=== PATIENT | male | born 1940 | race African-American/Black ===

== ENCOUNTER 2024-05-29 08:14 | Emergency (ER) | payer BC, MEDICARE ==
[2024-05-29 08:32] LABS: #Basophils 0.04 10x3/uL (0.0-0.2); %Basophils 0.4 % (0.0-1.0); %Eosinophils 1.1 % (0.0-10.0); %Lymphocytes 23.8 % (21.0-51.0); %Monocytes 10.8 % (0.0-10.0); %Neutrophils 62.9 % (42.0-75.0); Hematocrit 42.2 % (42.0-52.0); Mean Corpuscular HGB CONC 33.2 g/dL (32.0-36.0); Mean Corpuscular Hemoglobin 27.8 pg (27.0-31.0); Mean Corpuscular Volume 83.7 fL (78.0-98.0); Mean Platelet Volume 9.8 fL (7.4-10.4); Platelet Count 197 10x3/uL (130-400); RBC Distribution Width 13.1 % (11.5-14.5); Red Blood Cell (RBC) Count 5.04 mill/uL (4.70-6.10)
[2024-05-29 08:55] LABS: ALT (SGPT) 15 U/L (8-55); AST (SGOT) 25 U/L (5-34); Albumin 3.8 g/dL (3.4-4.8); Alkaline Phosphatase 73 U/L (40-110); Anion Gap 14 mmol/L (10-20); BUN (Urea Nitrogen) 10 mg/dL (8.4-25.7); Bilirubin, Total 0.8 mg/dL (0.2-1.2); Calc. Creatinine Clearance 0 mL/min (70-130); Calcium 8.9 mg/dL (7.8-10.44); Carbon Dioxide 19 mmol/L (23-31); Chloride 105 mmol/L (98-107); Estimated GFR 61; Globulin 3.2 g/dL (2.4-3.5); Glucose 121 mg/dL (83-110); Lipase 31 U/L (8-78); Potassium 3.8 mmol/L (3.5-5.1); Sodium 134 mmol/L (136-145)
[2024-05-29 08:58] LABS: Troponin I Less than 0.010 ng/mL (< 0.028)
[2024-05-29] MEDS ORDERED: Ondansetron PF 4 MG/2 ML Vial ONE (08:58)
[2024-05-29] MEDS ORDERED: Morphine 4 MG/ML VIAL ONE (08:58)
[2024-05-29] MEDS ORDERED: Iopamidol-370 76% 500 ML MDV (1 ML CHARGE) ONE (14:52)
== END 2024-05-29 12:57 | disposition home or self-care (01) ==
LOC: ERS 08:14
DX: S32.018A Other fracture of first lumbar vertebra, initial encounter for closed fracture (principal); R54 Age-related physical debility; I10 Essential (primary) hypertension; Z55.6 Problems related to health literacy; Z75.3 Unavailability and inaccessibility of health-care facilities; V89.2XXA Person injured in unspecified motor-vehicle accident, traffic, initial encounter; Y93.89 Activity, other specified
CPT/HCPCS: 70450; 71045; 72100; 72125; 74177; 80053; 83690; 84484; 85025; 93005; 96374; 96375; G0390; J2272; J2405; Q9967

== ENCOUNTER 2024-07-06 10:27 | Outpatient (CLI) | payer MEDICARE, BC | END 2024-07-06 10:28 | disposition home or self-care (01) | LOC: RAD 10:27 | PROVIDERS: ATTEND Neurological Surgery | DX: S32.021D Stable burst fracture of second lumbar vertebra, subsequent encounter for fracture with routine healing (principal); S32.019D Unspecified fracture of first lumbar vertebra, subsequent encounter for fracture with routine healing; M47.816 Spondylosis without myelopathy or radiculopathy, lumbar region | CPT/HCPCS: 72100 ==